=== PATIENT | female | born 1970 | race Caucasian/White ===

== ENCOUNTER 2021-08-18 12:55 | Emergency (ER) | payer OTHER ==
[2021-08-18 13:03] VITALS: BP 134/63; PULSE 98; TEMP 99; BMI 22.3
[2021-08-18] MEDS ORDERED: DIPHTH,PERTUSS(ACELL),TET 0.5 ML DISP.SYRIN IM ONE ×2 (13:12→13:38)
[2021-08-18] MEDS ORDERED: AMOX TR/POT CLAV 875MG/125MG TABLETS (FP) PO ONE (13:12)
[2021-08-18] MEDS ORDERED: AMOX TR/POT CLAV 875MG/125MG TABLETS (FP) ONE (13:38)
== END 2021-08-18 14:15 | disposition home or self-care (01) ==
LOC: FER 12:55
PROC: 3E0234Z Introduction of Serum, Toxoid and Vaccine into Muscle, Percutaneous Approach (ICD-10-PCS; principal; 2021-08-18)
DX: L03.012 Cellulitis of left finger (principal); W55.01XA Bitten by cat, initial encounter
CPT/HCPCS: 90715; 99284-25

== ENCOUNTER 2021-10-24 04:48 | Day surgery (SDC) | payer OTHER ==
[2021-10-21 14:50] VITALS: BMI 23.7
[2021-10-24 10:43] VITALS: TEMP 98
[2021-10-24 11:20] VITALS: BP 97/66; PULSE 62
== END 2021-10-24 11:30 | disposition home or self-care (01) ==
LOC: JASU-ENDO 04:48
PROVIDERS: ATTEND Internal Medicine Gastroenterology
PROC: 0DJD8ZZ Inspection of Lower Intestinal Tract, Via Natural or Artificial Opening Endoscopic (ICD-10-PCS; principal; 2021-10-24 10:00)
DX: Z12.11 Encounter for screening for malignant neoplasm of colon (principal); K63.89 Other specified diseases of intestine; Z86.010 Personal history of colon polyps; Z83.71 Family history of colonic polyps
CPT/HCPCS: 81025